=== PATIENT | female | born 1950 | race Caucasian/White ===

== ENCOUNTER 2020-03-08 08:13 | Emergency (ER) | payer OTHER, SELFPAY ==
[2020-03-08 08:33] VITALS: BP 148/89; PULSE 80; RESP 16; TEMP 36.4; O2SAT 98
--- NOTE | 2020-03-08 08:47 | ED.FEMALEGU ---
HPI - Female Genitourinary General Chief complaint: Urogenital-Female Stated complaint: Poss uti`/ rash under breasts Source: patient Mode of arrival: ambulatory Limitations: no limitations History of Present Illness HPI Narrative: Patient is a 69-year-old female who presents complaining of lower abdominal/pelvic pain and pressure as well as dysuria x3 days. She also reports rash under bilateral breast x3 to 4 days. She reports a history of diverticulitis in the past, kidney stones, hysterectomy and pelvic floor surgery. She also reports history of UTIs but has not had one in years. She has a new PCP that she will see initially in March. She denies taking [id number] medications for pain or for use with rash. MD elicited complaint: UTI Related Data Home Medications Medication Instructions Recorded Confirmed ibuprofen 800 mg PO Q6H 03/08/20 03/08/20 Allergies Allergy/AdvReac Type Severity Reaction Status Date / Time hydromorphone [From Dilaudid] Allergy Hives Verified 03/08/20 09:23 Review of Systems Review of Systems: Narrative: CONSTITUTIONAL: Denies fever, chills, or sweats. EYES: Denies visual changes, redness, or discharge. ENT: Denies rhinorrhea, congestion, sore throat, or otalgia. CARDIOVASCULAR: Denies chest pain, palpitations, or edema. RESPIRATORY: Denies cough or dyspnea. GASTROINTESTINAL: Reports lower abdominal pain with intermittent diarrhea, denies nausea, vomiting. GENITOURINARY: Reports dysuria, denies hematuria. SKIN: Reports rash under bilateral breasts. MUSCULOSKELETAL: Denies back pain, joint pain, or myalgia. NEUROLOGIC: Denies headache, numbness, dizziness, or weakness. PSYCHIATRIC: Denies anxiety or depression. [facility] Past Medical History Medical History Diverticulitis Multiple kidney stones Surgical History Surgical History H/O pelvic surgery History of hysterectomy Hx laparoscopic cholecystectomy Family History Family History (Updated 03/08/20 @ 09:17 by MARÍA Gore) Other Heart disease Social History Social History (Updated 03/08/20 @ 09:17 by MARÍA Gore) Smoking status: Never smoker Alcohol intake: never Substance use: never Occupation/Education: retired Gender identity (if verbalized by the patient): Female Comments At the time of signature, I have reviewed and agree with nursing past medical, surgical, social, and family history unless otherwise noted. Please see nursing chart for further information. There is no relevant family history pertinent to the presenting complaint. Exam Narrative: Exam Narrative: GENERAL: Well-appearing, well-nourished, and in no acute distress. HEAD: Normocephalic, atraumatic. EYES: No redness or drainage. ENT: Mucous membranes pink and moist. CHEST: No respiratory distress. HEART: Regular rate and rhythm. GI: Soft, nontender without rebound, or guarding. No distention. MUSCULOSKELETAL: No bony tenderness. EXTREMITIES: Normal range of motion. SKIN: Erythema beneath bilateral breasts NEURO: No focal deficits. Alert and oriented x3. Gait steady. PSYCH: Normal affect. No signs of depression or anxiety. Course Vital Signs Vital signs: Vital Signs Temperature 36.4 C L 03/08/20 08:33 Pulse Rate 80 03/08/20 08:33 Respiratory Rate 16 03/08/20 08:33 Blood Pressure 148/89 H 03/08/20 08:33 Pulse Oximetry 98 03/08/20 08:33 Temperature 36.4 C L 03/08/20 08:33 Pulse Rate 80 03/08/20 08:33 Respiratory Rate 16 03/08/20 08:33 Blood Pressure 148/89 H 03/08/20 08:33 Pulse Oximetry 98 03/08/20 08:33 Reviewed-patient is informed that they may have pre-hypertension or hypertension based on a blood pressure reading. I recommend the patient call the primary care provider listed on their discharge instructions or a physician of their choice this week to
== END 2020-03-08 09:12 | disposition home or self-care (01) ==
PROVIDERS: Emergency Provider Nurse Practitioner; PCP Family Medicine
DX: N39.0 Urinary tract infection, site not specified (principal); B37.2 Candidiasis of skin and nail; Z87.442 Personal history of urinary calculi
CPT/HCPCS: 81003; 87086; 87088; 99213; G0463